=== PATIENT | female | born 1985 | race Two or more races ===

== ENCOUNTER 2021-04-26 14:40 | Inpatient (IN) ==
[2021-04-26] MEDS ORDERED: CITRIC ACID/SODIUM CITRATE 30 ML UDCUP PO ONE (15:19)
[2021-04-26] MEDS ORDERED: ceFAZolin 2,000 MG/50 ML DUPLEX IV ONE (15:19)
[2021-04-26] MEDS ORDERED: FAMOTIDINE 20 MG/2 ML VIAL IV ONE (15:21)
[2021-04-26] MEDS ORDERED: LACTATED RINGERS 1,000 ML IV SCH ×2 (15:30→19:30)
[2021-04-26 16:03] LABS: Albumin 2.6 G/DL (3.4-5.0); Bilirubin,Total 0.4 MG/DL (0.20-1.00); Calcium 8.8 MG/DL (8.5-10.1); Osmolality,Calculated 272.5 MOS/KG (273-304); Potassium 3.5 MMOL/L (3.5-5.1); Total Protein 6.9 G/DL (6.4-8.2)
[2021-04-26 16:30] LABS: Basophils % 0.3 % (0.0-0.8); Eosinophils # 0.2 10*3/uL (0.0-0.87); Eosinophils % 1.5 % (0.00-10.9); Hematocrit 36.6 VOL% (35.7-47.0); Hemoglobin 10.5 GM/DL (12.0-16.0); Immature Granulocytes % 1.1 %; Immature Granulocytes Absolute 0.11 #; Lymphocytes # 2.1 10*3/uL (1.4-4.0); Lymphocytes % 20.8 % (21.3-54.2); Mean Corpuscular HGB Conc 28.7 GM/DL (32-36); Mean Corpuscular Volume 77.9 FL (87-102); Mean Platelet Volume 11.4 FL (9.6-12.0); Monocytes % 4.6 % (1.7-12.7); NRBC # 0.03 10*3/uL; Neutrophils % 71.7 % (38.7-73.9); Platelet Count 360 T/CUMM (130-400); Red Cell Distribution Width 17.9 % (9.3-17.3)
[2021-04-26] MEDS ORDERED: OXYTOCIN/LR 20 UNIT/1,000 ML BAG IV ONE ×3 (17:26→19:18)
[2021-04-26] MEDS ORDERED: SODIUM CHLORIDE 0.9% 100 ML IV ONE (17:28)
[2021-04-26] MEDS ORDERED: miSOPROStoL 200 MCG TABLET ONE (17:28)
[2021-04-26] MEDS ORDERED: TRANEXAMIC ACID 1,000 MG/10 ML VIAL ONE (17:28)
[2021-04-26] MEDS ORDERED: METHYLERGONOVINE 0.2 MG/1 ML AMP ONE (17:29)
[2021-04-26] MEDS ORDERED: CARBOPROST TROMETHAMINE 250 MCG/ML AMP IM ONE (17:29)
[2021-04-26] MEDS ORDERED: BUPIVACAINE SPINAL 0.75% 2 ML AMP SPINAL ONE (17:54)
[2021-04-26] MEDS ORDERED: ONDANSETRON 4 MG/2 ML VIAL ONE (17:57)
[2021-04-26] MEDS ORDERED: PHENYLEPHRINE 1 MG/10 ML SYRINGE IV ONE ×2 (17:57→18:44)
[2021-04-26 18:40] LABS: Cord Venous Blood HCO3 20.4 MMOL/L; Cord Venous Blood PCO2 51.6 MMHG; Cord Venous Blood PO2 < 17
[2021-04-26 18:54] LABS: Bacteria,Urine Occasional /HPF (Few); Bilirubin,Urine Negative (Negative); Blood, Urine Negative (Negative); Glucose,Urine (UA) Negative (Negative); Ketones,Urine 80 mg/dL (Negative); Mucus,Urine Occasional /LPF (Occasional); Nitrite,Urine Negative (Negative); Protein,Urine Negative; RBC,Urine 4 /HPF (0-4); Squamous Epithelial Cell,Urine Occasional /HPF (0-10); Urine Appearance CLEAR (Clear); Urine Color Yellow (Yellow); Urine Specific Gravity 1.014 (1.001-1.035); Urine Urobilinogen < 2.0 EU/DL (<2.0)
[2021-04-26] MEDS ORDERED: LACTATED RINGERS 1,000 ML IV ONE (19:10)
[2021-04-26] MEDS ORDERED: ONDANSETRON 4 MG/2 ML VIAL IV PRN (19:18)
[2021-04-26] MEDS ORDERED: IBUPROFEN 800 MG TABLET PO PRN (19:18)
[2021-04-26] MEDS ORDERED: ACETAMINOPHEN 325 MG TABLET PO PRN (19:18)
[2021-04-26] MEDS ORDERED: RHO(D) IMMUNE GLOBULIN 300 MCG SYRINGE IM ONE (19:18)
[2021-04-26] MEDS: ACETAMINOPHEN 500 MG TABLET PO SCH (19:36)
[2021-04-26] MEDS: DOCUSATE SODIUM 100 MG CAPSULE PO SCH (22:59)
[2021-04-27] MEDS: ACETAMINOPHEN 500 MG TABLET PO SCH ×3 (01:22→13:50)
[2021-04-27 07:36] LABS: Basophils % 0.4 % (0.0-0.8); Eosinophils # 0.1 10*3/uL (0.0-0.87); Eosinophils % 1.5 % (0.00-10.9); Hematocrit 29.8 VOL% (35.7-47.0); Hemoglobin 8.7 GM/DL (12.0-16.0); Immature Granulocytes % 1.1 %; Immature Granulocytes Absolute 0.09 #; Lymphocytes # 1.7 10*3/uL (1.4-4.0); Lymphocytes % 20.8 % (21.3-54.2); Mean Corpuscular HGB Conc 29.2 GM/DL (32-36); Mean Corpuscular Volume 76.6 FL (87-102); Mean Platelet Volume 10.9 FL (9.6-12.0); Monocytes % 5.8 % (1.7-12.7); Neutrophils % 70.4 % (38.7-73.9); Platelet Count 318 T/CUMM (130-400); Red Blood Count 3.89 MC/CUMM (3.8-5.5); Red Cell Distribution Width 17.6 % (9.3-17.3); White Blood Count 8.2 T/CUMM (4-12)
[2021-04-27] MEDS: SIMETHICONE CHEW 80 MG TABLET PO PRN (07:57)
[2021-04-27] MEDS: MAGNESIUM HYDROXIDE SUSP 30 ML UDCUP PO PRN ×2 (07:57→19:48)
[2021-04-27] MEDS: MULTIVITAMIN (PRENATAL) TABLET PO SCH ×2 (07:58→10:26)
[2021-04-27] MEDS: DOCUSATE SODIUM 100 MG CAPSULE PO SCH ×4 (07:58→21:28)
[2021-04-27 11:58] LABS: Basophils % 0.3 % (0.0-0.8); Eosinophils # 0.1 10*3/uL (0.0-0.87); Eosinophils % 1.2 % (0.00-10.9); Hematocrit 26.8 VOL% (35.7-47.0); Immature Granulocytes % 0.8 %; Immature Granulocytes Absolute 0.07 #; Lymphocytes # 1.8 10*3/uL (1.4-4.0); Lymphocytes % 19.2 % (21.3-54.2); Mean Corpuscular HGB Conc 29.9 GM/DL (32-36); Mean Corpuscular Volume 76.4 FL (87-102); Mean Platelet Volume 10.5 FL (9.6-12.0); Monocytes % 5.4 % (1.7-12.7); Neutrophils % 73.1 % (38.7-73.9); Platelet Count 310 T/CUMM (130-400); Red Blood Count 3.51 MC/CUMM (3.8-5.5); Red Cell Distribution Width 17.7 % (9.3-17.3); White Blood Count 9.2 T/CUMM (4-12)
[2021-04-27] MEDS: oxyCODONE/ACETAMINOPHEN 5-325 MG TABLET PO PRN ×2 (15:17→19:50)
[2021-04-27] MEDS: FERROUS SULFATE 325 MG TABLET PO SCH ×2 (21:29→21:31)
[2021-04-28] MEDS ORDERED: MAGNESIUM CITRATE 300 ML BOTTLE PO ONE (08:14)
[2021-04-28] MEDS ORDERED: BISACODYL 10 MG SUPP RECTAL PRN (08:14)
[2021-04-28] MEDS: MAGNESIUM HYDROXIDE SUSP 30 ML UDCUP PO PRN (08:41)
[2021-04-28] MEDS: DOCUSATE SODIUM 100 MG CAPSULE PO SCH (08:42)
[2021-04-28] MEDS: MULTIVITAMIN (PRENATAL) TABLET PO SCH (08:42)
[2021-04-28] MEDS: FERROUS SULFATE 325 MG TABLET PO SCH (08:42)
[2021-04-28] MEDS: SIMETHICONE CHEW 80 MG TABLET PO PRN (08:42)
[2021-04-28 10:20] VITALS: BP 132/88
== END 2021-04-28 12:36 | disposition home or self-care (01) | DRG 787 ==
LOC: N.LDOUT 14:40 → N.LD 14:46 → N.OB 21:45
PROVIDERS: ADMIT Obstetrics & Gynecology; ATTEND Obstetrics & Gynecology
PROC: LDCSECT (ICD-10-PCS; 2021-04-26 18:00)